=== PATIENT | male | born 1970 | race Hispanic/Latino ===

== ENCOUNTER 2017-11-14 06:28 | Emergency (ER) | payer BC, OTHER ==
[2017-11-14 06:28] VITALS: BMI 39.1
[2017-11-14 06:40] VITALS: TEMP 98.5; O2SAT 98
[2017-11-14] MEDS ORDERED: Sodium Chloride 0.9% 1,000 ML IV STA (07:21)
--- NOTE | 2017-11-14 07:26 | ED PDOC ---
Arrival/HPI - General Chief Complaint: Abdominal Pain Time Seen by Provider: 11/14/17 07:14 Historian: Patient - History of Present Illness Narrative History of Present Illness (Text): 11/14/17 07:20 47 year old male, whose PMH includes seizures, who presents to the emergency department complaining of lower abdominal pain since 04:30 AM this morning described as cramping. Patient reports feeling nauseous and the pain became worse with movement. He notes having a scheduled appointment with his GI tomorrow for out-patient colonoscopy due to recent blood in stool. Patient denies vomiting, diarrhea, chest pain, shortness of breath, fever, dizziness, headache, dysuria, or other complaints. PMD: Dr. Calloway GI: Dr. Platt Time/Duration: 4-6 hours Symptom Onset: Sudden Symptom Course: Unchanged Quality: Cramping Activities at Onset: Rest Context: Home Past Medical History - Provider Review Nursing Documentation Reviewed: Yes - Infectious Disease Hx of Infectious Diseases: None - Tetanus Immunization Tetanus Immunization: Unknown - Cardiac Hx Cardiac Disorders: No - Pulmonary Hx Respiratory Disorders: No - Neurological Hx Seizures: Yes (Epilepsy) - HEENT Hx HEENT Disorder: No - Renal Hx Renal Disorder: No - Endocrine/Metabolic Hx Endocrine Disorders: No - Hematological/Oncological Hx Blood Disorders: No - Integumentary Hx Dermatological Disorder: No - Musculoskeletal/Rheumatological Hx Musculoskeletal Disorders: No - Gastrointestinal Hx Gastrointestinal Disorders: No - Genitourinary/Gynecological Hx Genitourinary Disorders: No - Psychiatric Hx Psychophysiologic Disorder: No Hx Depression: No Hx Emotional Abuse: No Hx Physical Abuse: No Hx Substance Use: No - Past Surgical History Past Surgical History: Non-Contributing - Suicidal Assessment Feels Threatened In Home Enviroment: No Family/Social History - Physician Review Nursing Documentation Reviewed: Yes Family/Social History: Unknown Family HX Smoking Status: Never Smoked Hx Alcohol Use: No Hx Substance Use: No Hx Substance Use Treatment: No Allergies/Home Meds Allergies/Adverse Reactions: Allergies No Known Allergies Allergy (Verified 06/26/16 16:56) Home Medications: Home Meds Medication Instructions Recorded Confirmed Phenytoin Sodium Extended 200 mg PO BID 10/06/13 11/14/17 [Dilantin] Review of Systems - Review of Systems Constitutional: absent: Fevers Respiratory: absent: SOB Cardiovascular: absent: Chest Pain Gastrointestinal: Abdominal Pain (lower abdominal pain ), Nausea, Hematochezia. absent: Vomiting Genitourinary Male: absent: Dysuria Musculoskeletal: absent: Back Pain Skin: absent: Rash Neurological: absent: Headache, Dizziness Endocrine: absent: Diaphoresis Physical Exam Vital Signs Reviewed: Yes Vital Signs Temp Pulse Resp BP Pulse Ox 11/14/17 06:35 98.5 F 84 19 131/91 H 98 Temperature: Afebrile Blood Pressure: Hypertensive Pulse: Regular Respiratory Rate: Normal Appearance: Positive for: Well-Appearing, Non-Toxic, Comfortable Pain Distress: None Mental Status: Positive for: Alert and Oriented X 3 - Systems Exam Head: Present: Atraumatic, Normocephalic Pupils: Present: PERRL Extroacular Muscles: Present: EOMI Conjunctiva: Present: Normal Neck: Present: Normal Range of Motion Respiratory/Chest: Present: Clear to Auscultation, Good Air Exchange. No: Respiratory Distress, Accessory Muscle Use, Wheezes, Decreased Breath Sounds, Rales, Retracting, Rhonchi Cardiovascular: Present: Regular Rate and Rhythm, Normal S1, S2. No: Murmurs Abdomen: Present: Tenderness (lower abdomen tenderness), Normal Bowel Sounds, Guarding. No: Distention, Peritoneal Signs, Rebound Neurological: Present: GCS=15, CN II-XII Intact, Speech Normal Skin: Present: Warm, Dry, Normal Color. No: Rashes Psychiatric: Present: Alert, Oriented x 3, Normal Insight, Normal Concentration Medical Decision Making ED Course and Treatment: 11/14/17 Impression: 47 year old male with lower abdominal tenderness with guarding complaining of lower abdominal pain with recent episodes of hematochezia Differential Diagnosis included but are not limited to: Lower GI bleed vs. Diverticulitis vs. Abdominal mass Plan: -- CT abdomen and pelvis with IV contrast -- Labs -- Protonix, Sodium Chloride -- Reassess and disposition Progress Notes: 11/14/17 07:25 Case was discussed with Dr. lPatt, who is aware of plan and agrees with treatment of CT scan for abdomen and pelvis with IV contrast. 11/14/17 08:04 Rectal exam: normal tone, no fissures or hemorrhoids, no blood, brown stool, guiac negative 11/14/17 12:15 CT abdomen and pelvic: Creator: Lorenzo Mitchell Impressions: There is mild mural thickening in the sigmoid colon suspicious for colitis. 11/14/17 13:[address] Mendes, patient's GI, who is aware of plan and recommends to start patient on cipro flagyl for 10 days and follow up as out- patient. He also advices for patient to re-schedule the colonoscopy. Abdomen soft and not tender. Patient feels more comfortable. at bedside who will take him home. Patient will f/u as an outpatient with GI and PMD. Advised to return to the ED if symptoms worsen or any other concern. Dr. Platt came to evaluate patient and will return to the ED if symptoms worsen or any other concern. Denies lightheadedness or dizziness when standing up and walking. - Lab Interpretations Lab Results: 11/14/17 07:42 11/14/17 07:42 Lab Results 11/14/17 09:30: Lipase 91 11/14/17 08:12: Blood Type Confirm O POSITIVE 11/14/17 07:42: Phenytoin 7 L 11/14/17 07:42: Blood Type O POSITIVE, Antibody Screen Negative, BBK History Checked No verified bt 11/14/17 07:42: Sodium 141, Potassium 4.2, Chloride 103, Carbon Dioxide 26, Anion Gap 16, BUN 14, Creatinine 0.8, Est GFR ( Amer) > 60, Est GFR (Non- Af Amer) > 60, Random Glucose 100, Calcium 9.5, Magnesium 2.1, Total Bilirubin 0.4, AST 21, ALT 22, Alkaline Phosphatase 117, Total Protein 7.7, Albumin 4.5, Globulin 3.2, Albumin/Globulin Ratio 1.4, Lipase TNP 11/14/17 07:42: PT 12.3, INR 1.07, APTT 28.3 11/14/17 07:42: WBC 6.2, RBC 4.94, Hgb 15.3, Hct 43.4, MCV 87.9, MCH 31.0, MCHC 35.3, RDW 12.7, Plt Count 212, MPV 9.1, Gran % 69.0 H, Lymph % (Auto) 20.6 L, [place] % (Auto) 8.5 H, Eos % (Auto) 1.6, Baso % (Auto) 0.3, Gran # 4.29, Lymph # ( Auto) 1.3, [place] # (Auto) 0.5, Eos # (Auto) 0.1, Baso # (Auto) 0.02 I have reviewed the lab results: Yes - RAD Interpretation Radiology Orders: 11/14/17 07:25 ABD PELVIS PO & IV CONTRAST [CT] Stat Social Work Nurse: Radiologist - Medication Orders Current Medication Orders: Sodium Chloride (Sodium Chloride 0.9%) 1,000 mls @ 100 mls/hr IV .Q10H STA Stop: 11/14/17 17:20 Last Admin: 11/14/17 07:48 Dose: 100 mls/hr eMAR Start Stop Document 11/14/17 07:48 MR (Rec: 11/14/17 07:48 MR [id number]) Intravenous Solution Start Date 11/14/17 Start Time 07:48 Discontinued Medications Ciprofloxacin (Cipro) 500 mg PO ONCE STA PRN Reason: Protocol Stop: 11/14/17 13:18 Last Admin: 11/14/17 13:49 Dose: 500 mg Phenytoin 250 mg/ Sodium (Chloride) 50 mls @ 240 mls/hr IVPB STAT STA Stop: 11/14/17 08:33 Last Admin: 11/14/17 08:46 Dose: 240 mls/hr eMAR Start Stop Document 11/14/17 08:46 MR (Rec: 11/14/17 08:46 MR [id number]) Intravenous Solution Start Date 11/14/17 Start Time 08:46 End Date 11/14/17 End time 08:58 Total Infusion Time 12 Metronidazole (Flagyl) 500 mg PO STAT STA PRN Reason: Protocol Stop: 11/14/17 13:18 Last Admin: 11/14/17 13:49 Dose: 500 mg Pantoprazole Sodium (Protonix Inj) 80 mg IVP STAT STA Stop: 11/14/17 07:23 Last Admin: 11/14/17 07:47 Dose: 80 mg IVP Administration Document 11/14/17 07:47 MR (Rec: 11/14/17 07:47 MR [id number]) Charges for Administration # of IVP Administrations 1 - Scribe Statement The provider has reviewed the documentation as recorded by the Viviibe Francoise Pablo Provider Scribe Attestation: All medical record entries made by the Scribe were at my direction and personally dictated by me. I have reviewed the chart and agree that the record accurately reflects my personal performance of the history, physical exam, medical decision making, and the department course for this patient. I have also personally directed, reviewed, and agree with the discharge instructions and disposition. Disposition/Present on Arrival - Present on Arrival Any Indicators Present on Arrival: No History of DVT/PE: No History of Uncontrolled Diabetes: No Urinary Catheter: No History of Decub. Ulcer: No History Surgical Site Infection Following: None - Disposition Have Diagnosis and Disposition been Completed?: Yes Diagnosis: Colitis Disposition: HOME/ ROUTINE Disposition Time: : Patient Plan: Discharge Patient Problems: Current Active Problems Problem Status Onset Colitis Acute Condition: STABLE Discharge Instructions (ExitCare): Diarrhea in Adolescents and Adults Additional Instructions: JOSE GRAY, thank you for letting us take care of you today. Your provider was Manjit Luna DO and you were treated for Colitis. The emergency medical care you received today was directed at your acute symptoms. If you were prescribed any medication, please fill it and take as directed. It may take several days for your symptoms to resolve. Return to the Emergency Department if your symptoms worsen, do not improve, or if you have any other problems. Please contact your doctor or call one of the physicians/clinics you have been referred to that are listed on the Patient Visit Information form that is included in your discharge packet. Bring any paperwork you were given at discharge with you along with any medications you are taking to your follow up visit. Our treatment cannot replace ongoing medical care by a primary care provider outside of the emergency department. Thank you for allowing the [facility] team to be part of your care today. If you had an X-Ray or CT scan: A Radiologist will review the ED reading if any change in treatment is needed we will contact you. If you had a blood, urine, or wound culture: It will take several days for the results, if any change in treatment is needed we will contact you. If you had an STI test: It will take 48 hours for the results. Please call after 1 week if you have not heard back. Prescriptions: Ciprofloxacin [Cipro] 500 mg PO Q12 #20 tab Metronidazole [Flagyl] 500 mg PO TID #30 tablet Ranitidine HCl [Zantac] 150 mg PO BID PRN #30 tablet PRN Reason: Pain, Mild (1-3) Referrals: Haider Calloway MD [Primary Care Provider] - Follow up with primary Rosa Platt MD [Medical Doctor] - Follow up with primary Forms: [employer] (Monegasque), WORK NOTE
[2017-11-14 07:53] LABS: BASO # 0.02 K/mm3 (0.0-2.0); BASO % 0.3 % (0.0-3.0); EOS # 0.1 (0.0-0.7); EOS % 1.6 % (1.5-5.0); GRAN # 4.29 (1.4-6.5); HEMOGLOBIN 15.3 g/dL (14.0-18.0); LYMPH # 1.3 (1.2-3.4); LYMPH % 20.6 % (22.0-35.0); MEAN CELL VOLUME 87.9 fl (80.0-105.0); MEAN CORPUSCULAR HGB CONC 35.3 g/dl (31.0-37.0); MEAN PLATELET VOLUME 9.1 fl (7.0-11.0); MONO # 0.5 (0.1-0.6); MONO % 8.5 % (1.0-6.0); RBC 4.94 10^6/uL (3.5-6.1); RED CELL DISTRIBUTION WIDTH 12.7 % (11.5-14.5); WHITE BLOOD COUNT 6.2 10^3/ul (4.5-11.0)
[2017-11-14 08:03] LABS: INR 1.07 (0.93-1.08); PARTIAL THROMBOPLASTIN TIME 28.3 Seconds (25.1-36.5); PROTHROMBIN TIME 12.3 SECONDS (9.4-12.5)
[2017-11-14 08:05] LABS: ALB/GLOB RATIO 1.4 (1.1-1.8); ALBUMIN 4.5 g/dL (3.0-4.8); ALT/SGPT 22 U/L (7-56); AST/SGOT 21 U/L (17-59); BLOOD UREA NITROGEN 14 mg/dL (7-21); CALCIUM 9.5 mg/dL (8.4-10.5); GFR AFRICAN-AMERICAN > 60; GFR NON-AFRICAN AMERICAN > 60
[2017-11-14] MEDS ORDERED: Phenytoin 250 MG in Sodium Chloride 0.9% 50 ML IVPB STA (08:21)
--- NOTE | 2017-11-14 12:18 | CT ---
Date of service: 11/14/2017 PROCEDURE: CT Abdomen and Pelvis with contrast HISTORY: low abd pain r/o diverticulitis COMPARISON: 02/18/2017 TECHNIQUE: Contrast dose: 150 cc of Omni 350 Radiation dose: Total exam DLP = 1053 mGy-cm. This CT exam was performed using one or more of the following dose reduction techniques: Automated exposure control, adjustment of the mA and/or kV according to patient size, and/or use of iterative reconstruction technique. FINDINGS: LOWER THORAX: Unremarkable. LIVER: Unremarkable. No gross lesion or ductal dilatation. GALLBLADDER AND BILE DUCTS: Unremarkable. PANCREAS: Unremarkable. No gross lesion or ductal dilatation. SPLEEN: Unremarkable. ADRENALS: Unremarkable. No mass. KIDNEYS AND URETERS: Unremarkable. No hydronephrosis. No solid mass. VASCULATURE: Unremarkable. No aortic aneurysm. BOWEL: There is mild mural thickening in the sigmoid colon suspicious for colitis. APPENDIX: Normal appendix. PERITONEUM: Unremarkable. No free fluid. No free air. LYMPH NODES: Unremarkable. No enlarged lymph nodes. BLADDER: Unremarkable. REPRODUCTIVE: Unremarkable. BONES: No acute fracture. OTHER FINDINGS: None. IMPRESSION: There is mild mural thickening in the sigmoid colon suspicious for colitis.
[2017-11-14 16:21] VITALS: BP 123/82; PULSE 78; RESP 19
== END 2017-11-14 13:51 | disposition home or self-care (01) ==
LOC: ED 06:28
DX: K52.9 Noninfective gastroenteritis and colitis, unspecified (principal)
CPT/HCPCS: 74177; 80053; 80185; 83690; 83735; 85025; 85610; 85730; 86850; 86900; 96374; 99284; C9113; J1165; J7030; Q9967

== ENCOUNTER 2018-01-17 07:55 | Emergency (ER) | payer OTHER ==
[2018-01-17 07:55] VITALS: BMI 39.1
[2018-01-17 08:26] VITALS: RESP 18
[2018-01-17] MEDS ORDERED: TDAP Vaccine 0.5 mL Syr IM ONE (09:00)
--- NOTE | 2018-01-17 09:05 | ED PDOC ---
Arrival/HPI - General Chief Complaint: Abnormal Skin Integrity Time Seen by Provider: 01/17/18 08:59 Historian: Patient - History of Present Illness Narrative History of Present Illness (Text): 01/17/18 08:59 A 47 year old male, whose past medical history includes seizure disorder on dylantin, presents to the emergency department complaining of left proximal hypothenar eminence puncture wound from earlier today. Patient reports his wound occurred when pushing in a kitchen shelf. Patient denies any tenderness deficit, significant hemorrhage or neurovascular deficit, headache, dizziness, or any other complaints. Time/Duration: Other (earlier today) Symptom Onset: Sudden Symptom Course: Unchanged Activities at Onset: Light Context: Home Past Medical History - Provider Review Nursing Documentation Reviewed: Yes - Infectious Disease Hx of Infectious Diseases: None - Tetanus Immunization Tetanus Immunization: Unknown - Cardiac Hx Cardiac Disorders: No - Pulmonary Hx Respiratory Disorders: No - Neurological Hx Seizures: Yes (Epilepsy) - HEENT Hx HEENT Disorder: No - Renal Hx Renal Disorder: No - Endocrine/Metabolic Hx Endocrine Disorders: No - Hematological/Oncological Hx Blood Disorders: No - Integumentary Hx Dermatological Disorder: No - Musculoskeletal/Rheumatological Hx Musculoskeletal Disorders: No - Gastrointestinal Hx Gastrointestinal Disorders: No - Genitourinary/Gynecological Hx Genitourinary Disorders: No - Psychiatric Hx Psychophysiologic Disorder: No Hx Depression: No Hx Emotional Abuse: No Hx Physical Abuse: No Hx Substance Use: No - Past Surgical History Past Surgical History: Non-Contributing - Anesthesia Hx Anesthesia: No - Suicidal Assessment Feels Threatened In Home Enviroment: No Family/Social History - Physician Review Nursing Documentation Reviewed: Yes Family/Social History: Unknown Family HX Smoking Status: Never Smoked Hx Alcohol Use: No Hx Substance Use: No Hx Substance Use Treatment: No Allergies/Home Meds Allergies/Adverse Reactions: Allergies No Known Allergies Allergy (Verified 06/26/16 16:56) Home Medications: Home Meds Medication Instructions Recorded Confirmed Phenytoin Sodium Extended 200 mg PO BID 10/06/13 01/17/18 [Dilantin] Review of Systems - Physician Review All systems were reviewed & negative as marked: Yes - Review of Systems Constitutional: Normal Eyes: Normal ENT: Normal Respiratory: Normal Cardiovascular: Normal Gastrointestinal: Normal Genitourinary Male: Normal Musculoskeletal: Other (ABRASION) Skin: Other (+Punture wound to left hand). absent: Normal (no tenderness deficit, significant hemorrhage or neurovacular deficit) Neurological: absent: Headache, Dizziness Endocrine: Normal Hemo/Lymphatic: Normal Psychiatric: Normal Physical Exam Vital Signs Reviewed: Yes Vital Signs Temp Pulse Resp BP Pulse Ox 01/17/18 09:59 86 18 135/74 99 01/17/18 08:29 98.7 F 92 H 18 138/86 99 01/17/18 08:13 98.7 F 92 H 18 138/86 99 Temperature: Afebrile Blood Pressure: Normal Pulse: Tachycardic Respiratory Rate: Normal Appearance: Positive for: Well-Appearing, Non-Toxic, Comfortable Pain Distress: None Mental Status: Positive for: Alert and Oriented X 3 - Systems Exam Head: Present: Atraumatic, Normocephalic Pupils: Present: PERRL Extroacular Muscles: Present: EOMI Conjunctiva: Present: Normal Mouth: Present: Moist Mucous Membranes Neck: Present: Normal Range of Motion Respiratory/Chest: Present: Clear to Auscultation, Good Air Exchange. No: Respiratory Distress, Accessory Muscle Use Cardiovascular: Present: Regular Rate and Rhythm, Normal S1, S2. No: Murmurs Abdomen: No: Tenderness, Distention, Peritoneal Signs Back: Present: Normal Inspection Upper Extremity: Present: Normal ROM, NORMAL PULSES, Other (+two superficial ABRASIONS to hypothenar eminence , w/ questionable minimal punctate puncture wounds to left hand). No: Normal Inspection, Cyanosis, Edema, Tenderness, Swelling, Erythema, Neurovascularly Intact, Temperature Abnormalties, Capillary Refill < 2s, Deformity, Norm 2-Pt Discrimination Lower Extremity: Present: Normal Inspection. No: Edema Neurological: Present: GCS=15, CN II-XII Intact, Speech Normal, Motor Func Grossly Intact, Normal Sensory Function, Normal Cerebellar Funct, Norm Deep Tendon Reflexes, Gait Normal, Memory Normal, Normal 2Pt Descrimination Skin: Present: Abrasion (+abrasions to left hand) Psychiatric: Present: Alert, Oriented x 3, Normal Insight, Normal Concentration Medical Decision Making ED Course and Treatment: 01/17/18 09:09 Impression: 47 year old male presenting to the emergency department complaining of left hand wound. Plan: -- Keflex -- Motrin tablet -- Boostrix injection -- XRay of left hand thumb -- Reassess and disposition Prior Visits: Notes and results from previous visits were reviewed. Progress Notes: 01/17/18 10:11 wound dressed in bacitracin , pt educated as to care of wound. - RAD Interpretation Radiology Orders: 01/17/18 09:01 HAND LEFT 3 VIEWS ROUTINE [RAD] Stat - Medication Orders Current Medication Orders: Discontinued Medications Cephalexin Monohydrate (Keflex) 500 mg PO STAT STA PRN Reason: Protocol Stop: 01/17/18 09:01 Last Admin: 01/17/18 09:14 Dose: 500 mg Ibuprofen (Motrin Tab) 800 mg PO STAT STA Stop: 01/17/18 09:02 Last Admin: 01/17/18 09:14 Dose: 800 mg MAR Pain/Vitals Document 01/17/18 09:14 TAYLOR (Rec: 01/17/18 09:14 TAYLOR [id number]) Pain Reassessment Is This A Pain ReAssessment? No Sleep Is patient sleeping during reassessment? Yes Tetanus/Reduced Diphtheria/Acell Pertussis (Boostrix Vaccine Inj) 0.5 ml IM .ONCE ONE Stop: 01/17/18 09:01 Last Admin: 01/17/18 09:14 Dose: 0.5 ml Immunization Registry Document 01/17/18 09:14 JUNEO (Rec: 01/17/18 09:14 TAYLOR [id number]) Immunization Registry Consent Date 11/14/17 - Scribe Statement The provider has reviewed the documentation as recorded by the Viviibjose Esquivel All medical record entries made by the Scribe were at my direction and personally dictated by me. I have reviewed the chart and agree that the record accurately reflects my personal performance of the history, physical exam, medical decision making, and the department course for this patient. I have also personally directed, reviewed, and agree with the discharge instructions and disposition. Disposition/Present on Arrival - Present on Arrival Any Indicators Present on Arrival: No History of DVT/PE: No History of Uncontrolled Diabetes: No Urinary Catheter: No History of Decub. Ulcer: No History Surgical Site Infection Following: None - Disposition Have Diagnosis and Disposition been Completed?: Yes Diagnosis: Abrasion Disposition: HOME/ ROUTINE Disposition Time: 10:12 Patient Plan: Discharge Patient Problems: Current Active Problems Problem Status Onset Abrasion Acute Condition: GOOD Discharge Instructions (ExitCare): Skin Abrasions Print Language: YEMENI Additional Instructions: Please apply bacitracin ointment 2-3 times daily for 2 days , Take the antibiotics as prescribed. pain medicine as needed. Prescriptions: Cephalexin [Keflex] 500 mg PO Q6 #20 capsule Ibuprofen [Motrin Tab] 600 mg PO Q6 PRN #30 tab PRN Reason: Pain, Moderate (4-7) Referrals: Haider Calloway MD [Primary Care Provider] - Follow up with primary Forms: [employer] (Hong [place]er)
[2018-01-17 10:38] VITALS: BP 132/79; PULSE 72; TEMP 98.3; O2SAT 98
--- NOTE | 2018-01-17 14:14 | RAD ---
PROCEDURE: Left Hand Radiographs. HISTORY: puncture wound on HYPOthenar e inence COMPARISON: None. FINDINGS: BONES: Normal. No fracture. JOINTS: Normal. No osteoarthritic changes. SOFT TISSUES: Normal. OTHER FINDINGS: No evidence of foreign body IMPRESSION: Normal left hand radiographs.
== END 2018-01-17 10:37 | disposition home or self-care (01) ==
LOC: ED 07:55
DX: S60.512A Abrasion of left hand, initial encounter (principal); W23.0XXA Caught, crushed, jammed, or pinched between moving objects, initial encounter; Y92.89 Other specified places as the place of occurrence of the external cause; Z23 Encounter for immunization

== ENCOUNTER 2018-02-10 07:17 | Emergency (ER) | payer OTHER ==
[2018-02-10 07:17] VITALS: BMI 39.1
== END 2018-02-10 07:45 | disposition left against medical advice (07) ==
LOC: ED 07:17
DX: Z02.89 Encounter for other administrative examinations (principal); I10 Essential (primary) hypertension

== ENCOUNTER 2018-05-17 21:07 | Emergency (ER) | payer OTHER ==
[2018-05-17 21:07] VITALS: BMI 39.1
[2018-05-17 21:30] VITALS: BP 116/81; PULSE 90; RESP 18; TEMP 98.1; O2SAT 96
--- NOTE | 2018-05-17 21:50 | ED PDOC ---
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 Patient is compliant with medications at home and denies LOC during or after the incident. indicates that he has not had any seizure like episodes before or since the incident. He is able to articulate words appropriately and has no gross neurological deficits. He endorses dizziness and nausea but denies any vomiting. Patient was able to stop bleeding with pressure prior to our interview and denies and prescriptions for blood thinners. 05/17/18 21:53 05/17/18 23:36 Time/Duration: Prior to Arrival, 1 hour Symptom Onset: Sudden Symptom Course: Unchanged Severity Level: 5 <Breanna Ramirez - Last Filed: 05/17/18 23:52> - General Chief Complaint: Abnormal Skin Integrity Time Seen by Provider: 05/17/18 21:40 Past Medical History - Provider Review Nursing Documentation Reviewed: Yes - Infectious Disease Hx of Infectious Diseases: None - Tetanus Immunization Tetanus Immunization: Unknown - Cardiac Hx Cardiac Disorders: No - Pulmonary Hx Respiratory Disorders: No - Neurological Hx Seizures: Yes (Epilepsy) - HEENT Hx HEENT Disorder: No - Renal Hx Renal Disorder: No - Endocrine/Metabolic Hx Endocrine Disorders: No - Hematological/Oncological Hx Blood Disorders: No - Integumentary Hx Dermatological Disorder: No - Musculoskeletal/Rheumatological Hx Musculoskeletal Disorders: No - Gastrointestinal Hx Gastrointestinal Disorders: No - Genitourinary/Gynecological Hx Genitourinary Disorders: No - Psychiatric Hx Psychophysiologic Disorder: No Hx Depression: No Hx Emotional Abuse: No Hx Physical Abuse: No Hx Substance Use: No - Past Surgical History Past Surgical History: Non-Contributing - Anesthesia Hx Anesthesia: No Hx Anesthesia Reactions: No Hx Malignant Hyperthermia: No - Suicidal Assessment Feels Threatened In Home Enviroment: No <Breanna Ramirez - Last Filed: 05/17/18 23:52> Family/Social History - Physician Review Nursing Documentation Reviewed: Yes Family/Social History: Unknown Family HX Smoking Status: Never Smoked Hx Alcohol Use: No Hx Substance Use: No Hx Substance Use Treatment: No <Breanna Ramirez - Last Filed: 05/17/18 23:52> Allergies/Home Meds <Michael Onofre - Last Filed: 05/17/18 23:25> <Breanna Ramirez - Last Filed: 05/17/18 23:52> Allergies/Adverse Reactions: Allergies No Known Allergies Allergy (Verified 06/26/16 16:56) Home Medications: Home Meds Medication Instructions Recorded Confirmed Phenytoin Sodium Extended 200 mg PO BID 10/06/13 01/17/18 [Dilantin] Review of Systems - Physician Review All systems were reviewed & negative as marked: Yes - Review of Systems Constitutional: absent: Fatigue, Fevers Eyes: absent: Vision Changes ENT: absent: Hearing Changes, Rhinorrhea, Epistaxis Respiratory: absent: SOB, Cough Cardiovascular: absent: Chest Pain Gastrointestinal: Nausea. absent: Abdominal Pain, Diarrhea, Vomiting Musculoskeletal: absent: Arthralgias, Neck Pain Skin: Laceration (midline superior forehead) Neurological: Headache, Dizziness Endocrine: absent: Diaphoresis <Breanna Ramirez - Last Filed: 05/17/18 23:52> Physical Exam Vital Signs Temp Pulse Resp BP Pulse Ox 05/17/18 21:07 98.1 F 90 18 116/81 96 <Michael Onofre - Last Filed: 05/17/18 23:25> Vital Signs Reviewed: Yes Vital Signs Temp Pulse Resp BP Pulse Ox 05/17/18 21:07 98.1 F 90 18 116/81 96 Temperature: Afebrile Blood Pressure: Normal Pulse: Regular Respiratory Rate: Normal Appearance: Positive for: Well-Appearing, Non-Toxic, Comfortable Pain Distress: None Mental Status: Positive for: Alert and Oriented X 3 - Systems Exam Head: Present: Normocephalic, Laceration (midline superior forehead) Pupils: Present: PERRL Extroacular Muscles: Present: EOMI Mouth: Present: Moist Mucous Membranes Nose (External): Present: Atraumatic Nose (Internal): Present: Normal Inspection, No Active Bleeding Neck: Present: Normal Range of Motion Respiratory/Chest: Present: Clear to Auscultation, Good Air Exchange. No: Respiratory Distress, Accessory Muscle Use, Wheezes, Rales, Rhonchi Cardiovascular: Present: Regular Rate and Rhythm, Normal S1, S2. No: Murmurs Abdomen: No: Tenderness, Distention, Peritoneal Signs Upper Extremity: Present: Normal Inspection, NORMAL PULSES. No: Cyanosis, Edema Lower Extremity: Present: Normal Inspection, NORMAL PULSES. No: Edema, CALF TENDERNESS Neurological: Present: GCS=15, CN II-XII Intact, Speech Normal, Motor Func Grossly Intact, Memory Normal Skin: Present: Warm, Dry, Normal Color, Erythematous (erythematous area over the upper forehead extending back over the scalp to the posterior neck, consistent with patient's psoriasis), Laceration (stellate laceration to the superior midline forehead). No: Rashes Psychiatric: Present: Alert, Oriented x 3, Normal Insight, Normal Concentration <Breanna Ramirez - Last Filed: 05/17/18 23:52> Medical Decision Making ED Course and Treatment: Impression: Pt seen and evaluated with resident. Aware and agree with HPI, clinical findings, plan, and management. Pt, whose past medical history includes epilepsy, presented for a forehead laceration sustained after he hit his head on a counter. Plan: -- CT Head w/o contrast -- Lidocaine -- Ultram -- Laceration repair -- Reassess and disposition 05/17/18 23:24 CT Head: BRAIN No acute intraparenchymal hemorrhage. No mass lesion. No CT evidence for acute territorial infarct. No midline shift or extra-axial collections. VENTRICLES: No hydrocephalus. ORBITS: The orbits are unremarkable. SINUSES AND MASTOIDS: Right maxillary sinusitis is seen. The remaining visualized paranasal sinuses and mastoid air cells are clear. BONES: No fracture. SOFT TISSUES: Unremarkable. IMPRESSION: No acute intracranial abnormality. Electronically signed on May 17, 2018 10:25:24 PM EST by: Barrett Grant M.D., CR Certified By [facility] & [facility] Fellowship Trained MRI and CT Specialist - RAD Interpretation Radiology Orders: 05/17/18 21:44 HEAD W/O CONTRAST [CT] Stat - Medication Orders Current Medication Orders: Discontinued Medications Lidocaine HCl (Lidocaine 1% (20ml)) 20 ml IJ STAT STA Stop: 05/17/18 22:17 Tramadol HCl (Ultram) 50 mg PO STAT STA Stop: 05/17/18 21:45 <Michael Onofre - Last Filed: 05/17/18 23:25> ED Course and Treatment: Impression: 48 yr old male with PMH epilepsy presents with forehead laceration after hitting head on counter bending over Plan: Head CT laceration repair pain control Zofran offered for nausea patient declined at this time 05/17/18 21:50 - RAD Interpretation Narrative RAD Interpretations (Text): Head CT [facility] read: no acute intracranial pathology 05/17/18 23:37 Radiology Orders: 05/17/18 21:44 HEAD W/O CONTRAST [CT] Stat - Medication Orders Current Medication Orders: Tramadol HCl (Ultram) 50 mg PO STAT STA Stop: 05/17/18 21:45 <Breanna Ramirez - Last Filed: 05/17/18 23:52> Procedure: Wound Repair - Time Performed Time Performed: 23:30 - Time Out Time Out: Site verified, Patient ID confirmed, Sterile procedures obs. - Performed by Performed by: Mid-level Provider (resident) - Indications Indication(s):: Laceration - Location Location:: Scalp (sperior forehead, scalp margin), Face (forehead) Shape:: Stellate Dimensions Length cm: 2 Dimensions width cm: 1.5 Depth:: Epidermis - Anesthetic Technique Anesthetic Technique: Local Local/Regional Anesthetic:: Lidocaine 1% - Wound Examination Wound Examination:: Other (area of psoriatic erythema extending above area over the scalp posterior) - Debris Debris:: None - Irrigated Irrigated with ml of normal saline: 20 - Complexity Complexity:: Simple (one layer) - Wound repair method Sutures:: # (5), Size (6.0), Type (prolene), Technique (simple interrupted) Erasmo:: Steri-strips - Complications Complications: none - Patient tolerated procedure Patient Tolerated Procedure:: Well <Breanna Ramirez - Last Filed: 05/17/18 23:52> - PA / BRAND EXECUTIVE / Resident Statement [facility] has reviewed & agrees with the documentation as recorded. [facility] has examined the patient and agrees with the treatment plan. <Michael Onofre - Last Filed: 05/17/18 23:25> Disposition/Present on Arrival <Michael Onofre - Last Filed: 05/17/18 23:25> - Present on Arrival Any Indicators Present on Arrival: No History of DVT/PE: No History of Uncontrolled Diabetes: No Urinary Catheter: No History of Decub. Ulcer: No History Surgical Site Infection Following: None - Disposition Have Diagnosis and Disposition been Completed?: Yes Disposition Time: 23:51 Patient Plan: Discharge <Breanna Ramirez - Last Filed: 05/17/18 23:52> - Disposition Diagnosis: Laceration of forehead, complicated Disposition: HOME/ ROUTINE Patient Problems: Current Active Problems Problem Status Onset Laceration of forehead, complicated Acute Condition: STABLE Discharge Instructions (ExitCare): Wound Care (DC), Laceration Repair With Stitches (DC) Additional Instructions: Upon discharge please follow up with your primary care physician, Dr. Calloway within 3-5 days. You will need to have your stitches removed in approximately 3-5 days. The Steri strips (small bandaids) that were placed will fall off on their own or be removed when your stitches are removed. Do not shower or get incision wet for 72 hours after discharge. If new symptoms occur or your symptoms persist/worsen please return to your nearest ER for further evaluation. Referrals: Haider Calloway MD [Primary Care Provider] - Follow up with primary Forms: [employer] (Maltese), WORK NOTE
[2018-05-17] MEDS ORDERED: Lidocaine 1% Inj (20ml) IJ STA (22:16)
[2018-05-17] MEDS ORDERED: Bacitracin/Neomycin/Polymyxin Oint(30GM) TOP STA (23:29)
--- NOTE | 2018-05-17 23:41 | PCM.PROC ---
Procedures Attestation:: I certify that I have explained the specified Operation(s) or Procedure(s), risks, benefits and reasonable alternatives to the Patient and/or other person responsible. The opportunity was given to ask questions and all questions answered - Laceration lidocaine 1% simple, single layer clean irrigated extensively face 6-0 other local infiltration simple, interrupted Site: face (midline superior forehead) Description: stellate Depth: simple, single layer Anesthesia used: lidocaine 1% Anesthesia technique: local infiltration Pre-repair: irrigated extensively Skin layer closed with: other (prolene) Size: 6-0 Number of sutures: 5 Technique: simple, interrupted
[2018-05-18] MEDS ORDERED: Bacitracin 500 Units/gm Oint Foilpak UD ONE (00:02)
--- NOTE | 2018-05-18 10:46 | CT ---
Date of service: 05/17/2018 PROCEDURE: CT HEAD WITHOUT CONTRAST. HISTORY: head unjury COMPARISON: None available. TECHNIQUE: Axial computed tomography images were obtained through the head/brain without intravenous contrast. Radiation dose: Total exam DLP = 1021.65 mGy-cm. This CT exam was performed using one or more of the following dose reduction techniques: Automated exposure control, adjustment of the mA and/or kV according to patient size, and/or use of iterative reconstruction technique. FINDINGS: HEMORRHAGE: No intracranial hemorrhage. BRAIN: No mass effect or edema. No atrophy or chronic microvascular ischemic changes. VENTRICLES: Unremarkable. No hydrocephalus. CALVARIUM: Unremarkable. PARANASAL SINUSES: Unremarkable as visualized. No significant inflammatory changes. MASTOID AIR CELLS: Unremarkable as visualized. No inflammatory changes. OTHER FINDINGS: The report concurs with the preliminary [facility] report IMPRESSION: No acute intracranial findings
== END 2018-05-17 23:50 | disposition home or self-care (01) ==
LOC: ED 21:07
DX: S01.81XA Laceration without foreign body of other part of head, initial encounter (principal); X58.XXXA Exposure to other specified factors, initial encounter; G40.909 Epilepsy, unspecified, not intractable, without status epilepticus